=== PATIENT | female | born 1965 | race Caucasian/White ===

== ENCOUNTER 2017-04-07 09:31 | Emergency (ER) | payer MEDICARE ==
[~2017-04-07] VITALS: Ht 167.6 cm; Wt 107.7 kg
[~2017-04-07 09:31] MED LIST: ALBU8.5H2 INHALATION; ARIP20TA8 PO; FLUO20CA25 PO; IBUP800T28 PO; MELO-253 PO; METH20TA33 PO; TRAZ300T3 PO
[2017-04-07 09:34] VITALS: BP 112/83; PULSE 91; RESP 18; O2SAT 99
--- NOTE | 2017-04-07 09:39 | ED.REPORT ---
HPI-General Illness Date of Service Apr 07, 2017 ED Provider: Hayden Payne MD Pt is a 51 year old female with a history of multiple ED visits who presents to the ED complaining of left arm numbness onset a few weeks ago. She states that her whole arm is numb and weak, but the constant pain mostly resides in her elbow. She reports that she was seen recently at another hospital, where they had an EKG, stress test, and CAT scan given that were all normal. Additional symptoms include stabbing back pain, neck pain from a fall in June 2016, chest pain and SOB with inspiration. She denies weakness in her legs, nausea, vomiting, lightheadedness, dizziness, cough, fever, or sore throat. Pt denies any recent falls. Nursing Notes Stated Complaint: LEFT ARM NUMBNESS Chief Complaint: Extremity Trauma Nursing Notes Reviewed: Yes Allergies: Coded Allergies: No Known Drug Allergies (Verified Allergy, Unknown, 04/07/17) Scheduled Aripiprazole (Abilify) 20 Mg Tablet 20 MG PO DAILY Fluoxetine (Fluoxetine) 20 Mg Capsule 20 MG PO DAILY Ibuprofen (Ibuprofen) 800 Mg Tablet 800 MG PO BID Meloxicam (Meloxicam) 15 Mg Tablet 15 MG PO DAILY Methylphenidate (Methylphenidate) 20 Mg Tablet 20 MG PO BID take 2 tabs twice a day Trazodone (Trazodone) 300 Mg Tablet 300 MG PO HS Scheduled PRN Albuterol HFA (Proair HFA) 8.5 Gm Hfa.aer.ad 2 PUFFS INHALATION Q4H PRN PRN For Shortness of Breath Ibuprofen (Ibuprofen) 800 Mg Tablet 800 MG PO TID PRN PRN For Pain General Time Seen by MD: 09:38 Chief Complaint Other (Left arm numbness) Hx Obtained From: Patient Arrived By: Walk-in Sudden in Onset?: No Onset Occurred: More than a week ago... Symptom Duration: Constant Location: : Arm left Quality: Painful Severity: Current: Mild Severity: Maximum: Moderate Recent Healthcare: Recent doctor visit Similar Sx Previous: No Past Medical History Past Medical History Anxiety Arthritis Reports: Depression Past Surgical History Denies Smoking History Current Every Day Smoker Ambulatory Status Independent Review of Systems Left arm numbness and weakness No weakness in her legs Full Review of Systems Constitutional: Denies: Fever Ears / Nose / Throat: Denies: Sore throat Respiratory: Reports: Shortness of breath (with inspiration ), Denies: Non-productive cough, Prod cough, clear Cardiovascular: Reports: Chest pain (with inspiration) GI: Denies: Nausea, Vomiting Musculoskeletal: Reports: Back pain, Neck pain (constant) Neurologic: Denies: Dizziness, Lightheaded Complete sys rev & neg: except as marked. Physical Exam Vital Signs Vital Signs Date Time Temp Pulse Resp B/P Pulse Ox O2 Delivery O2 Flow Rate FiO2 04/07/17 12:04 83 19 112/48 98 Room Air 04/07/17 11:42 36.5 82 17 130/68 100 Room Air 04/07/17 10:28 83 22 98 Room Air 04/07/17 09:34 37.3 91 18 112/83 99 Room Air Initial VS: Reviewed Head / Eyes: Atraumatic, Normocephalic Extremities: Vascular intact, Neuro intact, No swelling, No tenderness Skin: Warm, Dry, No cyanosis Neurologic: Alert, Oriented, Nonfocal Psychiatric: Mood/affect normal, Behavior normal, Normal thought content General/Constitutional: Awake, Alert Neck: Supple, Full range of motion Diffuse neck tenderness Respiratory / Chest: Atraumatic, No respiratory distress Bilateral rhonchi sounds Cardiovascular: Heart rate NL, Regular rhythm, Heart sounds NL, No murmurs Back: Full range of motion Reproducible left upper back pain Upper Extremities Upper Extremity / MS: Full range of motion, Neurologic intact, Vascular intact Decreased effort in the left upper extremity Sensation intact Interpretation & Diagnostics Lab Results Interpretation Result Diagram: 04/07/17 1010 04/07/17 1010 Test 04/07/17 10:10 04/07/17 10:20 White Blood Count 5.0th/mm3 (3.8-10.1) Red Blood Count 4.12mil/mm3 (3.90-5.20) Hemoglobin 12.9g/dL (12.0-15.6) Hematocrit 38.9% (35.0-46.0) Mean Corpuscular Volume 94.4fL (81-100) Mean Corpuscular Hemoglobin 31.3pg (27.0-35.0) Mean Corpuscular Hemoglobin Concent 33.2% (32.0-37.0) Red Cell Distribution Width 12.9% (12.3-15.4) Platelet Count 138bil/L (150-400) Neutrophils (%) (Auto) 47.6% (40-74) Lymphocytes (%) (Auto) 38.9% (14-46) Monocytes (%) (Auto) 5.6% (4-12) Eosinophils (%) (Auto) 6.9% (0-5) Basophils (%) (Auto) 0.4% (0-3) Sodium Level 135mEq/L (134-144) Potassium Level 4.6mEq/L (3.5-5.2) Chloride Level 99mEq/L (97-108) Carbon Dioxide Level 22mmol/L (18-29) Blood Urea Nitrogen 17mg/dL (6-24) Creatinine 0.58mg/dL (0.57-1.00) Estimat Glomerular Filtration Rate 156mL/min (>59) Glucose Level 122mg/dL (60-99) Calcium Level 9.3mg/dL (8.5-10.1) Magnesium Level 1.7mg/dL (1.6-2.6) Total Bilirubin 0.2mg/dL (0.0-1.2) Aspartate Amino Transf (AST/SGOT) 44U/L (0-50) Alanine Aminotransferase (ALT/SGPT) 59U/L (0-32) Alkaline Phosphatase 121U/L (25-150) Troponin T 0.010ug/L (0.0-0.011) Pro-B-Type Natriuretic Peptide 40.65pg/mL (0-249) Total Protein 6.8g/dL (6.4-8.4) Albumin 3.8g/dL (3.4-5.0) D-Dimer 1.10mg/L FEU (<0.50) Hold Panda Top Tube Received (Received) ECG Interpretation ECG Interpretation: Sinus rhythm, rate 85 T wave inversions in V1 and V2 No other ST changes Unchanged from previous Time: 10:02 Interpreted by: ED physician X-Ray Chest Interpretation Chest Xray Interpretation: IMPRESSION: Source of pain is not seen. Dictated by: Benjamín Barajas M.D. on 04/07/2017 at 10:05 Approved by: Benjamín Barajas M.D. on 04/07/2017 at 10:05 View: Portable, 1 view Interpretation / Wet Read by: Interpret - Radiologist Re-Eval/Medical Decision Med Decision/Clinical Course 51-year-old female presenting complaining of left arm numbness for 2 weeks. She also incidentally reports left upper back pain reproducible times one. She was seen for similar outside hospital within the last [address] angina chest no PE. Her troponins are normal here. No EKG changes. Chest x-ray is normal. Her d-dimer is elevated though we are able to get records from outside hospital with no PE 2 weeks ago therefore not need to repeat CT at this time. She does have some chronic neck pain. She has had no recent changes in her left arm numbness for the past 2 weeks. She has poor effort on left upper extremity strength exam. However denies any new changes. I suspect she needs a MRI of her cervical spine but does not need this emergently given no recent changes last couple weeks. Given reproducible nature and negative workup suspect her left upper back pain is musculoskeletal. She will follow up with primary doctor. Return precautions given. Source of Hx: Old records Time of Eval: 11:53 Patient Status: Condition improved Re-Evaluation/Progress Note: Pt rechecked. Discussed plan for discharge. Pt agrees and understands plan. Gave all RTER and follow-up directions. All questions addresssed at this time. 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 Your labs, examination, and chest x-ray were all reassuring. There is no apparent dangerous cause for your symptoms at this time. Your heart enzymes were normal and there was no pneumonia is appreciated on your x-ray. I think you need an MRI for your arm numbness, but we cannot perform this in the emergency department. You can take extra-strength ibuprofen as needed for pain. Don't drive or drink alcohol while taking the Cyclobenzaprine medication. Please call in the morning to schedule a follow-up appointment with your primary care doctor in 2-3 days for a recheck and possible need for MRI. Please return to the emergency department if you are having any new or worsening symptoms, such as difficulty swallowing, bowel or bladder incontinence , numbness/tingling in your legs, or worsening weakness. Referrals: Lala Suarez (PCP) Scribe Attestation Portions of this note were transcribed by Reta Martin. I, Dr. Payne personally performed the history, physical exam and medical decision-making; I reviewed and confirmed the accuracy of the information in the transcribed note. copies to: Lala Suarez Ben M MD Apr 07, 2017 09:39 Reta Martin Apr 07, 2017 09:49
[2017-04-07] MEDS ORDERED: Ondansetron 2 mg/mL 2 mL Inj IVPUSH PRN (09:50)
--- NOTE | 2017-04-07 10:07 | DRSVH ---
PROCEDURE: X-RAY CHEST ONE VIEW, PORTABLE ([id number]) INDICATIONS: pleuritic chest pain TECHNIQUE: One view of the chest was acquired. COMPARISON: None. FINDINGS: Surgical changes and devices: None. Lungs and pleura: No pleural effusions or pneumothorax. Lungs are clear. Mediastinum: Mediastinal contours appear normal. Heart size is normal. Bones and chest wall: No suspicious bony lesions. Overlying soft tissues appear unremarkable. IMPRESSION: Source of pain is not seen. Dictated by: Benjamín aBrajas M.D. on 04/07/2017 at 10:05 Approved by: Benjamín Barajas M.D. on 04/07/2017 at 10:05
[2017-04-07 10:24] LABS: BASOPHILS % (AUTO) 0.4 % (0-3); EOSINOPHILS % (AUTO) 6.9 % (0-5); MONOCYTES % (AUTO) 5.6 % (4-12); Mean Corpuscular Hemoglobin 31.3 pg (27.0-35.0); Mean Corpuscular Volume 94.4 fL (81-100); NEUTROPHILS % (AUTO) 47.6 % (40-74); Platelet Count 138 bil/L (150-400)
[2017-04-07 10:28] VITALS: PULSE 83; RESP 22; O2SAT 98
[2017-04-07 10:46] LABS: TROPONIN T 0.01 ug/L (0.0-0.011)
[2017-04-07 10:57] LABS: Magnesium 1.7 mg/dL (1.6-2.6)
[2017-04-07 11:42] VITALS: BP 130/68; PULSE 82; RESP 17; O2SAT 100
[2017-04-07] MEDS ORDERED: IBUP800T28 PO (11:59)
[2017-04-07 12:04] VITALS: BP 112/48; PULSE 83; RESP 19; O2SAT 98
== END 2017-04-07 12:06 | disposition home or self-care (01) ==
LOC: SED 09:31
DX: R07.89 Other chest pain (principal); G56.92 Unspecified mononeuropathy of left upper limb; F41.8 Other specified anxiety disorders; F17.200 Nicotine dependence, unspecified, uncomplicated
CPT/HCPCS: 36415; 71010; 80053; 83735; 83880; 84484; 85025; 85378; 93005; 96374; 99285; J1885